=== PATIENT | male | born 1960 | race African-American/Black ===

== ENCOUNTER 2018-07-09 10:38 | Emergency (ER) | payer OTHER ==
[~2018-07-09] VITALS: Ht 180.3 cm; Wt 101.6 kg
[2018-07-09 11:41] LABS: BASO # 0.1 x10^3/uL (0.0-0.2); BASO % 1 % (0-3); EOS # 0.1 x10^3/uL (0.0-0.7); EOS % 2 % (0-3); HEMATOCRIT 50.4 % (39.0-53.0); LYMPH % 15 % (24-48); MEAN CORPUSCULAR HEMOGLOBIN 31 pg (25-35); MEAN CORPUSCULAR HGB CONC 34 g/dL (31-37); MEAN CORPUSCULAR VOLUME 91 fL (79-100); MONO # 0.6 x10^3/uL (0.0-1.1); MONO % 9 % (0-9); NEUT # 5.2 x10^3uL (1.8-7.7); NEUT % 74 % (31-73); PLATELET COUNT 196 x10^3/uL (140-400); RED BLOOD COUNT 5.55 x10^6/uL (4.30-5.70); RED CELL DISTRIBUTION WIDTH 15.6 % (11.5-14.5)
[2018-07-09] MEDS ORDERED: IPRATRPIUM/ALBUTEROL 0.5/2.5MG 3 ML NEBU. NEB ONE (11:45)
[2018-07-09] MEDS ORDERED: IV NORMAL SALINE 1000ML BAG 1,000 ML IV ONE (11:45)
[2018-07-09] MEDS ORDERED: predniSONE 20 MG TABLET PO ONE (11:45)
[2018-07-09 11:57] LABS: CALCIUM 9.2 mg/dL (8.5-10.1); GFR 93.5; POTASSIUM 4.4 mmol/L (3.5-5.1)
[2018-07-09 12:00] LABS: ALBUMIN 3.5 g/dL (3.4-5.0); ALBUMIN/GLOBULIN RATIO 0.9 (1.0-1.7); TOTAL BILIRUBIN 0.3 mg/dL (0.2-1.0); TOTAL PROTEIN 7.3 g/dL (6.4-8.2)
[2018-07-09] MEDS ORDERED: DOXYCYCLINE HYCLATE 100 MG TABLET PO ONE (12:15)
--- NOTE | 2018-07-09 12:19 | RAD ---
Examination: PORTABLE CHEST 1V History: PT STATES HAS COUGH, DIZZY AND LEG PAIN. Comparison/Correlation: 06/13/2014 two-view chest x-ray exam Findings: Portable frontal view chest was obtained. Heart size and pulmonary vasculature are normal. Left lower thoracic ill-defined focal infiltrate appears be present and new compared to the previous exam. Right lung field is clear. No pneumothorax. Impression: Left mid to lower lung field focal ill-defined infiltrate. Interval follow-up to assess resolution is recommended. Electronically signed by: Cem Carranza MD (07/09/2018 12:16 PM) [id number]
[2018-07-09 12:51] LABS: INFLUENZA A PATIENT NEGATIVE (NEGATIVE); INFLUENZA B PATIENT NEGATIVE (NEGATIVE)
[2018-07-09] MEDS ORDERED: ALBU2.5V8 INH (13:04)
[2018-07-09] MEDS ORDERED: FLUT1DIS IH (13:04)
[2018-07-09] MEDS ORDERED: DOXY100T PO (13:04)
[2018-07-09] MEDS ORDERED: PRED50TA PO (13:04)
[2018-07-09 13:11] VITALS: BP 129/77
--- NOTE | 2018-07-09 15:35 | PHYS DOC ---
Past Medical History Past Medical History: Cancer, TB, Other Additional Past Medical Histor: substance abuse, lung ca Past Surgical History: No Surgical History Smoking: Cigarettes, 1 Pack Per Day (40 years) Alcohol Use: Occasionally Drug Use: None, Phencyclidine Adult General Chief Complaint Chief Complaint: DIZZY/LIGHT HEADED HPI HPI Patient is a 57 year old male who presents with dizziness, shortness of breath, weakness, and productive cough x4 days with a near syncopal episode 2 days ago while taking out the trash. HE FELT LIGHTEHADED HE DIDNT BLACK OUT ALL THE WAY. Denies hemoptysis, fever, chills, abdominal pain, nausea and vomiting. Patient reports recent history of lung cancer (05/2017) with radiation treatment. States follow up with [facility] oncology scheduled 07/15/18. Review of Systems Review of Systems Constitutional: Denies fever or chills Eyes: Denies change in visual acuity, redness, or eye pain HENT: Denies nasal congestion or sore throat Respiratory: Endorses productive cough and shortness of breath, denies hemoptysis Cardiovascular: No additional information not addressed in HPI [] GI: Denies abdominal pain, nausea, vomiting, bloody stools or diarrhea : Denies dysuria or hematuria Musculoskeletal: Endorses right lateral thigh pain Integument: Denies rash or skin lesions Neurologic: Endorses frontal pressure headache, denies focal weakness or sensory changes Endocrine: Denies polyuria or polydipsia All other systems were reviewed and found to be within normal limits, except as documented in this note. Current Medications Current Medications Current Medications Medications (Trade) Dose Ordered Sig/Roly Start Time Stop Time Status Last Admin Dose Admin Albuterol/ Ipratropium (Duoneb) 3 ml 1X ONCE 07/09/18 11:45 07/09/18 11:46 DC 07/09/18 12:01 3 ML Doxycycline Hyclate (Vibra-Tab) 100 mg 1X ONCE 07/09/18 12:15 07/09/18 12:17 DC 07/09/18 12:23 100 MG Prednisone (Prednisone) 60 mg 1X ONCE 07/09/18 11:45 07/09/18 11:46 DC 07/09/18 12:11 60 MG Sodium Chloride 1,000 ml @ 1,000 mls/hr 1X ONCE 07/09/18 11:45 07/09/18 12:44 DC 07/09/18 12:10 1,000 MLS/HR Allergies Allergies Allergies Coded Allergies Type Severity Reaction Last Updated Verified No Known Drug Allergies 05/03/14 No Physical Exam Physical Exam Constitutional: Well developed, well nourished, no acute distress, non-toxic appearance. [] HENT: Normocephalic, atraumatic, bilateral external ears normal, oropharynx moist, no oral exudates, nose normal. [] Eyes: PERRLA, EOMI, conjunctiva normal, no discharge. [] Neck: Normal range of motion, no tenderness, supple, no stridor. [] Cardiovascular:Heart rate regular rhythm, no murmur [] Lungs & Thorax: Coarse breath sounds on left upper and lower quadrants [] Abdomen: Bowel sounds normal, soft, no tenderness, no masses, no pulsatile masses. [] Skin: Warm, dry, no erythema, no rash. [] Back: No tenderness, no CVA tenderness. [] Extremities: No tenderness, no cyanosis, mild clubbing, ROM intact, no edema. [ ] Neurologic: Alert and oriented X 3, normal motor function, normal sensory function, no focal deficits noted. [] Psychologic: Affect normal, judgement normal, mood normal. [] Current Patient Data Vital Signs Vital Signs Date Time Temp Pulse Resp B/P (MAP) Pulse Ox O2 Delivery O2 Flow Rate FiO2 07/09/18 13:11 90 20 98 07/09/18 12:02 Room Air 07/09/18 10:42 97.8 104/70 (81) 97.8 Lab Values Laboratory Tests Test 07/09/18 11:25 07/09/18 12:17 White Blood Count 7.0 x10^3/uL (4.0-11.0) Red Blood Count 5.55 x10^6/uL (4.30-5.70) Hemoglobin 17.0 g/dL (13.0-17.5) Hematocrit 50.4 % (39.0-53.0) Mean Corpuscular Volume 91 fL (79-100) Mean Corpuscular Hemoglobin 31 pg (25-35) Mean Corpuscular Hemoglobin Concent 34 g/dL (31-37) Red Cell Distribution Width 15.6 % (11.5-14.5) H Platelet Count 196 x10^3/uL (140-400) Neutrophils (%) (Auto) 74 % (31-73) H Lymphocytes (%) (Auto) 15 % (24-48) L Monocytes (%) (Auto) 9 % (0-9) Eosinophils (%) (Auto) 2 % (0-3) Basophils (%) (Auto) 1 % (0-3) Neutrophils # (Auto) 5.2 x10^3uL (1.8-7.7) Lymphocytes # (Auto) 1.0 x10^3/uL (1.0-4.8) Monocytes # (Auto) 0.6 x10^3/uL (0.0-1.1) Eosinophils # (Auto) 0.1 x10^3/uL (0.0-0.7) Basophils # (Auto) 0.1 x10^3/uL (0.0-0.2) Sodium Level 142 mmol/L (136-145) Potassium Level 4.4 mmol/L (3.5-5.1) Chloride Level 105 mmol/L (98-107) Carbon Dioxide Level 27 mmol/L (21-32) Anion Gap 10 (6-14) Blood Urea Nitrogen 12 mg/dL (8-26) Creatinine 1.0 mg/dL (0.7-1.3) Estimated GFR (Cockcroft-Gault) 93.5 BUN/Creatinine Ratio 12 (6-20) Glucose Level 97 mg/dL (70-99) Calcium Level 9.2 mg/dL (8.5-10.1) Total Bilirubin 0.3 mg/dL (0.2-1.0) Aspartate Amino Transferase (AST) 20 U/L (15-37) Alanine Aminotransferase (ALT) 30 U/L (16-63) Alkaline Phosphatase 110 U/L (46-116) Troponin I Quantitative < 0.017 ng/mL (0.000-0.055) Total Protein 7.3 g/dL (6.4-8.2) Albumin 3.5 g/dL (3.4-5.0) Albumin/Globulin Ratio 0.9 (1.0-1.7) L Influenza Type A Antigen Negative (NEGATIVE) Influenza Type B Antigen Negative (NEGATIVE) Laboratory Tests 07/09/18 11:25 Laboratory Tests 07/09/18 11:25 EKG EKG NSR Isolated T wave inversion in aVL, not found in comparison EKG (05/2014) although there was st flattening then No ST segment changes othrwise HR 82 Radiology/Procedures Radiology/Procedures Left mid to lower lung field focal ill-defined infiltrate. Interval follow-up to assess resolution is recommended. Course & Med Decision Making Course & Med Decision Making Pt is a 57 year old male with past medical history of COPD, lung cancer, and h/o TB presents with pneumonia without hypoxia, and near syncopal episode. EKG is unremarkable. Orthostatic BPs negative. Pt reports feeling significant improvement after duonebs and rehydration and prefers to return home on antibiotics vs. hospital admission. States he understands to follow-up with PCP for chest xray in 1 month to confirm resolution of pneumonia. Pertinent Labs and Imaging studies reviewed. (See chart for details) Plan: -IVF -DuonebsE -Start Prednisone -Start Doxycyline Dispo: he and i discussed in detail the findings my recommendation to stay in the hospital for abx and brief cardiac monitoring. his symptoms pretty much resolved on ambulation after nebs in er. he wants to return home. abx given, strict return prec given Follow up with PCP in 1 week. Scheduled follow up with [facility] for PET scan of lungs on 06/14/18 Chinmay Disclaimer Chinmay Disclaimer This electronic medical record was generated, in whole or in part, using a voice recognition dictation system. Departure Departure Impression: Primary Impression: Pneumonia Disposition: 01 HOME, SELF-CARE Condition: STABLE Patient Instructions: Pneumonia, Adult, [id number] Additional Instructions: go to doctor in 4-6 weeks for repeat chest xray for the mild left mid lung pna. follow up. Scripts Albuterol Sulfate (Proair Hfa) 8.5 Gm Hfa.aer.ad 1 PUFF INH PRN Q6HRS PRN for SHORTNESS OF BREATH, #1 INHALER Prov: DEYSI RAYMOND MD 07/09/18 Doxycycline Hyclate (DOXYCYCLINE HYCLATE) 100 Mg Tablet 1 TAB PO BID, #14 TAB Prov: DEYSI RAYMOND MD 07/09/18 Prednisone (PREDNISONE) 50 Mg Tablet 1 TAB PO DAILY, #5 TAB Prov: DEYSI RAYMOND MD 07/09/18 Fluticasone/Salmeterol (ADVAIR 100-50 DISKUS) 1 Each Disk.w.dev 1 PUFF IH BID, #1 INHALER 0 Refills Prov: DEYSI RAYMOND MD 07/09/18 DEYSI RAYMOND MD Jul 09, 2018 15:35
--- NOTE | 2018-07-10 10:38 | EKG ---
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
--- NOTE | 2018-07-10 10:41 | EKG ---
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
--- NOTE | 2018-07-16 09:24 | EKG ---
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
== END 2018-07-09 13:15 | disposition home or self-care (01) ==
LOC: ER 10:38
DX: J18.9 Pneumonia, unspecified organism (principal); R42 Dizziness and giddiness; F17.210 Nicotine dependence, cigarettes, uncomplicated
CPT/HCPCS: 36415; 71045; 80053; 84484; 85025; 87804; 93005; 94640; 96360; 99284; J7030; J7512; J7620